=== PATIENT | female | born 1945 | race African-American/Black ===

== ENCOUNTER 2020-07-30 07:39 | Emergency (ER) | payer OTHER, BC ==
[~2020-07-30] VITALS: Ht 167.6 cm; Wt 90.7 kg
[2020-07-30 09:02] LABS: HEMOGLOBIN 11.1 gm/dL (12.0-15.0); MCHC 32.7 g/dL (28.0-37.0); MCV 97.8 fL (80.0-100.0); RBC 3.48 mil/uL (4.20-5.00); RDW 14.6 % (10.5-14.5); WBC 12.9 thou/uL (4.0-11.0)
[2020-07-30 09:12] LABS: ANION GAP 9 mmol/L (7-16); BUN 21 mg/dL (7-18); CALCIUM 8.7 mg/dL (8.5-10.1); CHLORIDE 102 mmol/L (98-107); CO2 28 mmol/L (21-32); GLUCOSE 158 mg/dL (74-106); POTASSIUM 3.7 mmol/L (3.5-5.1); SODIUM 139 mmol/L (136-145)
[2020-07-30 09:16] LABS: TROPONIN-I <0.06 ng/mL (<0.06)
[2020-07-30 10:27] VITALS: BP 120/80
--- NOTE | 2020-07-30 11:37 | EKG ---
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: TORREY : 1945 Requested By: Rio Jimenez Order Number: [id number] MD: Juan Antonio Winn Measurements Intervals [place] Rate: 72 P: 66 CO: 183 QRS: 32 QRSD: 65 T: QT: 470 QTc: 515 Interpretive Statements Sinus rhythm Abnormal R-wave progression, early transition Nonspecific T abnrm, anterolateral leads No previous ECG available for comparison Electronically Signed On 07-30-2020 11:37:24 CDT by Juan Antonio Winn [email or web address] <ELECTRONICALLY SIGNED> By: Juan Antonio Winn MD, FACC 07/30/20 1137 2 2 Juan Antonio Winn MD, [facility] /EPI
== END 2020-07-30 10:28 | disposition home or self-care (01) ==
LOC: ER 07:39
PROVIDERS: Emergency Medicine
DX: R55 Syncope and collapse (principal); I10 Essential (primary) hypertension; W19.XXXA Unspecified fall, initial encounter; Y93.89 Activity, other specified; Y92.89 Other specified places as the place of occurrence of the external cause; Y99.8 Other external cause status